=== PATIENT | male | born 1960 | race Caucasian/White ===

== ENCOUNTER 2022-05-06 18:21 | Emergency (ER) | payer OTHER, SELFPAY ==
--- NOTE | ~2022-05-06 | XR_ITS ---
EXAM: XR shoulder LT min 2V DATE: 05/06/2022 18:51 HISTORY: PICKLE BALL 05/06/22. FELL BACKWARDS. LROM. . COMPARISON: None available. FINDINGS: Normal mineralization. No fracture or dislocation. No lytic or blastic lesion. Degenerativ e changes at the acromioclavicular and glenohumeral joints. No erosion or periosteal change. Soft tis sues within normal limits. IMPRESSION: No acute osseous finding in the left shoulder. Reviewed, dictated and finalized at location K.
[2022-05-06 18:28] VITALS: BP 134/74; PULSE 64; RESP 20; TEMP 36.9; O2SAT 99
--- NOTE | 2022-05-06 18:49 | ED.UPPEXIN ---
HPI - Extremity Injury (Upper) General Chief Complaint: Extremity Injury, Upper Stated Complaint: Left shoulder injury Related Data Home Medications Medication Instructions Recorded Confirmed albuterol sulfate 90 mcg/actuation 1 puff inhalation Q4-6H PRN Dyspnea 05/06/22 05/06/22 aerosol inhaler montelukast 10 mg tablet 10 mg PO DAILY 05/06/22 05/06/22 Allergies Allergy/AdvReac Type Severity Reaction Status Date / Time Penicillins Allergy Unknown Unknown Verified 05/06/22 18:41 Course Vital Signs Vital signs: Vital Signs Temperature 36.9 C 05/06/22 18:28 Pulse Rate 64 05/06/22 18:28 Respiratory Rate 20 05/06/22 18:28 Blood Pressure 134/74 05/06/22 18:28 Pulse Oximetry 99 05/06/22 18:28 Oxygen Delivery Room Air 05/06/22 18:28 Temperature 36.9 C 05/06/22 18:28 Pulse Rate 64 05/06/22 18:28 Respiratory Rate 20 05/06/22 18:28 Blood Pressure 134/74 05/06/22 18:28 Pulse Oximetry 99 05/06/22 18:28 Oxygen Delivery Room Air 05/06/22 18:28 Discharge Plan Discharge Prescriptions: No Action montelukast 10 mg tablet 10 mg PO DAILY albuterol sulfate 90 mcg/actuation HFA aerosol inhaler 1 puff INHALATION Q4-6H PRN (Reason: Dyspnea) Follow-up/Referrals: Harms,Bob Peterson M.D. [Primary Care Provider] -
--- NOTE | 2022-05-06 18:49 | ED.UPPEXIN ---
HPI - Extremity Injury (Upper) General Chief Complaint: Extremity Injury, Upper Stated Complaint: Left shoulder injury Time Seen by Provider: 05/06/22 18:35 Source: patient, RN notes reviewed and old records reviewed Mode of arrival: ambulatory Limitations: no limitations History of Present Illness HPI narrative: 62-year-old male presents to express care with complaints of falling today while playing pickle ball onto his posterior shoulder with pain with movement of his arm. Patient reports that he fell onto the asphalt on his left posterior shoulder with no other injury or any LOC. Patient has no pain to shoulder on palpation but pain to left shoulder with any attempted movement of shoulder, strong pulses to his left arm present. Patient reports that he has his routine physical with his PCP on Saturday, plans to discuss shoulder further with PCP if any continued problems. MD complaint: injury to: left and shoulder Onset (ago): hour(s) (At 4 PM today) Other injuries: none Place: outdoors Severity scale (1-10): 4 Treatments prior to arrival: other (aleve) Related Data Home Medications Medication Instructions Recorded Confirmed albuterol sulfate 90 mcg/actuation 1 puff inhalation Q4-6H PRN Dyspnea 05/06/22 05/06/22 aerosol inhaler montelukast 10 mg tablet 10 mg PO DAILY 05/06/22 05/06/22 Allergies Allergy/AdvReac Type Severity Reaction Status Date / Time Penicillins Allergy Unknown Unknown Verified 05/06/22 18:41 Review of Systems Review of Systems: CONSTITUTIONAL: Denies fever, chills, or sweats. CARDIOVASCULAR: Denies chest pain, palpitations, or edema. RESPIRATORY: Denies cough or dyspnea. SKIN: Denies rash or itching. Denies lacerations or abrasions MUSCULOSKELETAL: Reports pain to left shoulder with any movement of shoulder NEUROLOGIC: Denies numbness, or weakness. All systems reviewed & are unremarkable except as noted in HPI and below PMFSH Past Medical History Medical History (Updated 05/06/22 @ 19:20 by Diandra Nolen NP) Asthma Surgical History Surgical History (Updated 05/06/22 @ 19:09 by Diandra Nolen NP) Hx of hernia repair Social History Social History (Updated 05/06/22 @ 19:23 by Diandra Nolen NP) Smoking status: Never smoker Alcohol intake: current Alcohol use details: social Substance use type: does not use Living arrangements: with family Gender identity (if verbalized by the patient): Male Comments At time of signature, agree with nursing past medical, surgical, social and family history. There is no relevant family history pertinent to the presenting complaint Exam Narrative: GENERAL: Well-appearing, well-nourished, and in no acute distress. HEAD: Normocephalic, atraumatic. EYES: PERRLA, conjunctivae clear NECK: Supple. CHEST: Speaks in full sentences. No respiratory distress. HEART: Regular rate and rhythm. Normal and equal peripheral pulses. EXTREMITIES left arm has normal strength and sensation, decreased range of motion in left shoulder. No edema or ecchymosis. 5/5 strength. Normal sensation with sensitivity to light touch and pain. No point tenderness.? ?No open wounds, no skin tenting, no devitalized tissue or atrophy, no trophic changes, no obvious deformity, alignment normal, nearby joints and structures intact. Distal pulses palpable and equal bilaterally, skin warm, dry, pink. Capillary refill less than 3 seconds. Course Course Level of Care: Express Care Visit Vital Signs Vital signs: Vital Signs Temperature 36.9 C 05/06/22 18:28 Pulse Rate 64 05/06/22 18:28 Respiratory Rate 20 05/06/22 18:28 Blood Pressure 134/74 05/06/22 18:28 Pulse Oximetry 99 05/06/22 18:28 Oxygen Delivery Room Air 05/06/22 18:28 Temperature 36.9 C 05/06/22 18:28 Pulse Rate 64 05/06/22 18:28 Respiratory Rate 20 05/06/22 18:28 Blood Pressure 134/74 05/06/22 18:28 Pulse Oximetry 99 05/06/22 18:28 Oxygen Delivery
== END 2022-05-06 19:24 | disposition home or self-care (01) ==
PROVIDERS: Emergency Provider Registered Nurse; PCP Family Medicine
DX: S40.012A Contusion of left shoulder, initial encounter (principal); W19.XXXA Unspecified fall, initial encounter; J45.909 Unspecified asthma, uncomplicated
CPT/HCPCS: 73030; 99203; G0463